=== PATIENT | male | born 1950 | race Caucasian/White ===

== ENCOUNTER 2017-11-22 10:02 | Emergency (ER) | payer OTHER ==
[~2017-11-22] VITALS: Ht 167.6 cm; Wt 61.0 kg
[~2017-11-22 10:02] MED LIST: ASPEC81 PO; LPT40 PO; PLV75 PO
[2017-11-22 10:04] VITALS: TEMP 36.4; Ht 167.6 cm; Wt 61.0 kg
[2017-11-22] MEDS ORDERED: ASPIRIN 81 MG CHEW PO STA (10:29)
[2017-11-22 10:33] VITALS: O2SAT 98
--- NOTE | 2017-11-22 10:42 | EMERGENCY ROOM VISIT NOTE ---
History Report prepared by Chely: Faiza Prado Under the Supervision of: Dr. Prince Loco D.O. First contact with patient: 10:25 Chief Complaint: CARDIAC ASSESSMENT Stated Complaint: PRESSURE IN CHEST, HAS HAD HEART ATTACK BEFORE FEE Nursing Triage Summary: pt to the ED with c/o previous MT and feels similar today SOB ACKERMAN tightness in chest, feels good in am and then feels tired pain has been going on several days feels run down and weak when asked why he came in today he states that he figured it was time to come in History of Present Illness The patient is a 67 year old male who presents to the Emergency Room with complaints of intermittent chest tightness beginning about four days ago. The patient reports shortness of breath, fatigue, foot numbness, hip pain with walking. The patient states his shortness of breath worsens when he exerts himself. The patient states he was snowplowing yesterday. The patient has a history of a heart attack three years ago. When he had the heart attack, he had a stent put in at [facility]. The patient had a stress test about 9 months ago which was unremarkable. The patient states he followed up with his Radiagraph Operator a couple weeks ago. 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 The patient has never taken nitroglycerin. The patient takes a 81 mg aspirin daily and reports taking one this morning. The patient is a smoker. Source of History: patient Onset: four days ago Position: chest Quality: other (tightness) Timing: intermittent Modifying Factors (Worsening): exertion Associated Symptoms: + chest pain, + SOB, + fatigue Review of Systems See HPI for pertinent positives & negatives. A total of 10 systems reviewed and were otherwise negative. Past Medical & Surgical Medical Problems: (1) Acute anterolateral myocardial infarction (2) Acute MT (3) No chronic medical problems Family History No significant family history Social History Smoking Status: Current Some Day Smoker Alcohol Use: occasionally Drug Use: none Marital Status: Occupation Status: employed Current/Historical Medications Scheduled Aspirin (Aspirin EC Low Dose), 81 MG PO QAM Atorvastatin (Lipitor), 40 MG PO DAILY Nitroglycerin (Nitrostat), 1 TAB SL UD Allergies Coded Allergies: No Known Allergies (Unverified , 11/22/17) Physical Exam Vital Signs Date Time Temp Pulse Resp B/P (MAP) Pulse Ox O2 Delivery O2 Flow Rate FiO2 11/22/17 13:23 57 16 118/80 94 Room Air 11/22/17 13:16 64 11/22/17 11:59 58 18 141/91 98 Room Air 11/22/17 10:33 98 Nasal Cannula 2.0 11/22/17 10:33 98 Nasal Cannula 2.0 11/22/17 10:32 96 Room Air 11/22/17 10:31 58 11/22/17 10:04 36.4 74 16 138/95 97 Physical Exam GENERAL: Patient is awake, alert, and in no acute distress. Patient is resting comfortably and showing no signs of anxiety EYES: The conjunctivae are clear. The pupils are round and reactive. EARS, NOSE, MOUTH AND THROAT: The nose is without any evidence of any deformity. Mucous membranes are moist tongue is midline NECK: The neck is nontender and supple. RESPIRATORY: Normal respiratory effort is noted there is no evidence of wheezing rhonchi or rales CARDIOVASCULAR: Regular rate and rhythm noted there no murmurs rubs or gallops normal S1 normal S2 GASTROINTESTINAL: The abdomen is soft. Bowel sounds are present in all quadrants. Abdomen is nontender MUSCULOSKELETAL/EXTREMITIES: There is no evidence of gross deformity full range of motion is noted in the hips and shoulders SKIN: There is no obvious evidence of any rash. There are no petechiae, pallor or cyanosis noted. NEUROLOGIC: Patient is awake alert and oriented x3 Medical Decision & Procedures ER Provider Diagnostic Interpretation: Radiology results as stated below per my review and radiologist interpretation: SINGLE VIEW CHEST FINDINGS: An AP, portable, upright chest radiograph is compared to study dated 04/07/2015. The examination is degraded by portable technique and patient rotation. The cardiomediastinal silhouette is unremarkable. Scattered calcified granulomas are again noted. The lungs and pleural spaces are otherwise clear. No pneumothorax is seen. The bony thorax is grossly intact. IMPRESSION: No active disease in the chest. Electronically signed by: Demetrio Angelo M.D. Laboratory Results 11/22/17 10:29 Red Blood Count 5.28, Mean Corpuscular Volume 89.4, Mean Corpuscular Hemoglobin 31.3, Mean Corpuscular Hemoglobin Concent 35.0, Mean Platelet Volume 10.5, Neutrophils (%) (Auto) 57.4, Lymphocytes (%) (Auto) 30.4, Monocytes (%) (Auto) 10.0, Eosinophils (%) (Auto) 1.5, Basophils (%) (Auto) 0.5, Neutrophils # (Auto ) 3.40, Lymphocytes # (Auto) 1.80, Monocytes # (Auto) 0.59, Eosinophils # (Auto ) 0.09, Basophils # (Auto) 0.03 11/22/17 10:29 Test 11/22/17 10:29 11/22/17 12:15 White Blood Count 5.92 K/uL (4.8-10.8) Red Blood Count 5.28 M/uL (4.7-6.1) Hemoglobin 16.5 g/dL (14.0-18.0) Hematocrit 47.2 % (42-52) Mean Corpuscular Volume 89.4 fL (80-100) Mean Corpuscular Hemoglobin 31.3 pg (25-34) Mean Corpuscular Hemoglobin Concent 35.0 g/dl (32-36) Platelet Count 187 K/uL (130-400) Mean Platelet Volume 10.5 fL (7.4-10.4) Neutrophils (%) (Auto) 57.4 % Lymphocytes (%) (Auto) 30.4 % Monocytes (%) (Auto) 10.0 % Eosinophils (%) (Auto) 1.5 % Basophils (%) (Auto) 0.5 % Neutrophils # (Auto) 3.40 K/uL (1.4-6.5) Lymphocytes # (Auto) 1.80 K/uL (1.2-3.4) Monocytes # (Auto) 0.59 K/uL (0.11-0.59) Eosinophils # (Auto) 0.09 K/uL (0-0.5) Basophils # (Auto) 0.03 K/uL (0-0.2) RDW Standard Deviation 42.0 fL (36.4-46.3) RDW Coefficient of Variation 12.9 % (11.5-14.5) Immature Granulocyte % (Auto) 0.2 % Immature Granulocyte # (Auto) 0.01 K/uL (0.00-0.02) Prothrombin Time 10.6 SECONDS (9.0-12.0) Prothromb Time International Ratio 1.0 (0.9-1.1) Activated Partial Thromboplast Time 26.0 SECONDS (21.0-31.0) Partial Thromboplastin Ratio 1.0 Anion Gap 5.0 mmol/L (3-11) Est Creatinine Clear Calc Drug Dose 50.2 ml/min Estimated GFR () 69.1 Estimated GFR (Non- 59.6 BUN/Creatinine Ratio 13.2 (10-20) Calcium Level 9.1 mg/dl (8.5-10.1) Total Bilirubin 1.0 mg/dl (0.2-1) Direct Bilirubin 0.2 mg/dl (0-0.2) Aspartate Amino Transf (AST/SGOT) 24 U/L (15-37) Alanine Aminotransferase (ALT/SGPT) 25 U/L (12-78) Alkaline Phosphatase 101 U/L (45-117) Total Creatine Kinase 100 U/L (39-308) Creatine Kinase MB 2.6 ng/ml (0.5-3.6) Creatine Kinase MB Ratio 2.6 (0-3.0) Pro-B-Type Natriuretic Peptide 40 pg/ml (0-900) Total Protein 7.3 gm/dl (6.4-8.2) Albumin 4.0 gm/dl (3.4-5.0) Lipase 110 U/L (73-393) Troponin I < 0.015 ng/ml (0-0.045) Laboratory results per my review. Medications Administered Medications (Trade) Dose Ordered Sig/Antonietta Route Start Time Stop Time Status Last Admin Dose Admin Aspirin (Aspirin Chew) 162 mg NOW STAT PO 11/22/17 10:29 11/22/17 10:34 DC 11/22/17 10:37 162 MG ECG Indication: chest pain Rate (beats per minute): 55 Rhythm: sinus bradycardia Findings: ST depression (Inferior and lateral), no ectopy Comparison ECG Date: 03/05/16 Change: no significant change Change: Repeat : sinus bradycardia 47 bpm, ST depressions noted in inferior and lateral leads, no ectopy, no change from previous. EKG interpreted by me. ED Course 1026: The patient was evaluated in room A12A. A complete history and physical examination were performed. 1029: Ordered Aspirin 162 mg PO. 1132: I updated the patient on his test result. He denies any chest pain. 1137: I discussed the patient's case with Dr. Hernandez. The patient will be evaluated for further management. 1158: The patient wants to sign out AMA. We will repeat troponin and EKG. 1328: Long bedside discussion. The patient still would like to go home despite medical advice. 1350: Upon reevaluation, the patient is resting comfortably. I discussed the results and treatment plan with him. He verbalized agreement of the treatment plan. The patient was discharged home. Medical Decision Differential diagnosis: Etiologies such as cardiac ischemia, aortic dissection, pulmonary embolism, pneumonia, pneumothorax, musculoskeletal, infections, pericarditis, myocarditis , esophageal rupture, gastrointestinal, as well as others were entertained. Nursing notes reviewed. The patient is a 67-year-old male who presented to the emergency department for an evaluation of chest discomfort. The patient describes chest pain which I feel could be cardiac in nature. It appears to be exertional. It was also relieved with rest. The patient was treated with aspirin in the emergency department. I discussed the patient's laboratory and radiographic studies with him. I also discussed the limitations of the emergency department workup for chest pain with him. Because of his comorbidities and past medical history I discussed his case with the on-call [facility] hospitalist. The patient was evaluated by the hospitalist but then decided he did not wish to stay in the hospital. I had a long conversation with the patient. His concerns mostly appear to be related to his insurance status. I encouraged him this would not be a problem and that by putting off treatment and further evaluation could be subject to a more serious problem. Ultimately the patient was evaluated by the emergency Department complex case manager. We will try to set him up with an appointment with his primary hand booked folder and stitcher group this week. He decided to sign out AGAINST MEDICAL ADVICE. I discussed the risks of leaving with him as well as his significant other. He was encouraged to rest and avoid any strenuous activity. I also gave him a prescription for sublingual nitroglycerin. He was encouraged to continue all medications as prescribed and return to the emergency department immediately if symptoms change worsen or the need arises. Medication Reconcilliation Current Medication List: was personally reviewed by me Blood Pressure Screening Patient's blood pressure: Normal blood pressure Consults Time Called: [phone] Consulting Physician: Dr. Hernandez Returned Call: [phone] I discussed the patient's case with Dr. Hernandze. The patient will be evaluated for further management. Impression Primary Impression: Exertional chest pain Additional Impression: Sinus bradycardia Scribe Attestation The scribe's documentation has been prepared under my direction and personally reviewed by me in its entirety. I confirm that the note above accurately reflects all work, treatment, procedures, and medical decision making performed by me. Departure Information Dispostion Against Medical Advice Prescriptions Nitroglycerin (Nitrostat) 0.4 Mg Tab 1 TAB SL UD for Chest Pain, #100 TAB 3 Refills Prov: Prince Loco, DO 11/22/17 Referrals No Doctor, Assigned (PCP) Forms IMPORTANT VISIT INFORMATION Patient Instructions Angina, ED Chest Pain Atypical Unkn Cause, My [facility] Additional Instructions Continue all medications as prescribed. Rest and avoid any strenuous activity. Return to the emergency department immediately if symptoms change worsen or the need arises. Follow-up with your hand booked folder and stitcher this week as scheduled. I would also recommend finding a primary care physician. Problem Qualifiers
--- NOTE | 2017-11-22 10:50 | DIAGNOSTIC IMAGING REPORT ---
SINGLE VIEW CHEST CLINICAL HISTORY: Atypical chest pain. FINDINGS: An AP, portable, upright chest radiograph is compared to study dated 04/07/2015. The examination is degraded by portable technique and patient rotation. The cardiomediastinal silhouette is unremarkable. Scattered calcified granulomas are again noted. The lungs and pleural spaces are otherwise clear. No pneumothorax is seen. The bony thorax is grossly intact. IMPRESSION: No active disease in the chest. Electronically signed by: Demetrio Angelo M.D. 11/22/2017 10:48 AM Dictated Date/Time: 11/22/2017 10:47 AM
[2017-11-22 10:58] LABS: BASO % 0.5 %; BASO ABS # 0.03 K/uL (0-0.2); EOS % 1.5 %; EOS ABS # 0.09 K/uL (0-0.5); HEMATOCRIT 47.2 % (42-52); HEMOGLOBIN 16.5 g/dL (14.0-18.0); IG# 0.01 K/uL (0.00-0.02); LYMPH % 30.4 %; MEAN CELL VOLUME 89.4 fL (80-100); MEAN CORPUSCULAR HEMOGLOBIN 31.3 pg (25-34); MEAN PLATELET VOLUME 10.5 fL (7.4-10.4); MONO ABS # 0.59 K/uL (0.11-0.59); NEUT % 57.4 %; PLATELET COUNT 187 K/uL (130-400); RED CELL DISTRIBUTION WIDTH CV 12.9 % (11.5-14.5); WHITE BLOOD COUNT 5.92 K/uL (4.8-10.8)
[2017-11-22] MEDS ORDERED: ATOR-24 PO (11:02)
[2017-11-22 11:10] LABS: ALT/SGPT 25 U/L (12-78); AST/SGOT 24 U/L (15-37); BLOOD UREA NITROGEN 17 mg/dl (7-18); CALCIUM 9.1 mg/dl (8.5-10.1); CARBON DIOXIDE 27 mmol/L (21-32); CREATININE 1.25 mg/dl (0.60-1.40); GLUCOSE 97 mg/dl (70-99); LIPASE 110 U/L (73-393); POTASSIUM 3.7 mmol/L (3.5-5.1); SODIUM 138 mmol/L (136-145)
[2017-11-22 11:16] LABS: ALKALINE PHOSPHATASE 101 U/L (45-117); CKMB 2.6 ng/ml (0.5-3.6); TOTAL PROTEIN 7.3 gm/dl (6.4-8.2)
[2017-11-22 13:23] VITALS: BP 118/80; PULSE 57; O2SAT 94
[2017-11-22] MEDS ORDERED: NTRGSL/4 SL (13:32)
--- NOTE | 2017-11-22 14:27 | History and Physical ---
History & Physical Date of Service Nov 22, 2017. History & Physical per request from ED physician, pt was seen and eval patient wants to sign out AMA. I told patient that against medical advice may cause permanent organ damage or even , patient is awake, alert and orientated x3, I believe patient is competent to make decision by self. patient fully understands and wants to take all risks by self. I also told patient that your medical condition is not ready for your doctor to discharge you to home. you need to go back to emergency room or call your primary care physician if changed mind and wants to be treated.
== END 2017-11-22 13:53 | disposition left against medical advice (07) ==
LOC: C.EDB 10:03 → C.EDA 13:53
DX: R07.89 Other chest pain (principal); R00.1 Bradycardia, unspecified; R06.02 Shortness of breath; R53.83 Other fatigue; R20.0 Anesthesia of skin; M25.559 Pain in unspecified hip; I25.2 Old myocardial infarction; F17.200 Nicotine dependence, unspecified, uncomplicated; Z95.5 Presence of coronary angioplasty implant and graft; Z79.82 Long term (current) use of aspirin

== ENCOUNTER 2022-07-29 07:16 | Inpatient (IN) ==
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
[~2022-07-29 07:16] MED LIST changes: -ASPEC81 PO; +LACTATED RINGER'S 1,000 ML IV SCH; -LPT40 PO; -PLV75 PO; +SUGAMMADEX SODIUM 200 MG/2 ML VIAL IV ONE
[2022-07-29] MEDS ORDERED: ONDANSETRON INJ 2 MG/ML 2 ML VIAL ONE (07:18)
[2022-07-29] MEDS ORDERED: MIDAZOLAM HCL 1 MG/ML 2ML VIAL ONE (07:18)
[2022-07-29] MEDS ORDERED: fentaNYL citrate 100 MCG/2 ML VIAL ONE ×2 (07:18→08:53)
[2022-07-29] MEDS ORDERED: DEXAMETHASONE SOD INJ 4 MG/ML VIAL ONE (07:18)
[2022-07-29] MEDS ORDERED: PROPOFOL IV EMULSION 10 MG/ML 20 ML VIAL IV ONE (07:18)
[2022-07-29] MEDS ORDERED: ROCURONIUM BROMIDE 10 MG/ML 5 ML VIAL IV ONE ×6 (07:18→09:53)
--- NOTE | 2022-07-29 08:12 | History & Physical Bridge Note ---
Date of Service July 29, 2022 History & Physical Bridge Note I have examined the patient, reviewed the History & Physical and in the interval since the performance of the History & Physical I have noted the following changes of clinical significance: no changes noted all question answered, at bedside
[2022-07-29] MEDS ORDERED: ePHEDrine sulfate 50 MG/ML AMP IV PRN (08:16)
[2022-07-29] MEDS ORDERED: ONDANSETRON INJ 2 MG/ML 2 ML VIAL IV PRN (08:16)
[2022-07-29] MEDS ORDERED: ATROPINE SULFATE 0.1 MG/ML 10ML SYR IV PRN (08:16)
[2022-07-29] MEDS ORDERED: BUPIVACAINE 0.5 % 5 MG/1 ML MPF 30ML VIAL ONE (08:22)
[2022-07-29] MEDS ORDERED: KETAMINE 50 MG/5 ML SYRINGE ONE (08:55)
[2022-07-29] MEDS ORDERED: cefOXitin 2,000 MG in DEXTROSE 5% 50 ML IV STA (09:31)
--- NOTE | 2022-07-29 10:45 | Post Operative Brief Note ---
PG Immediate Post Op with CF Date of Surgery July 29, 2022 Pre & Post Diagnosis Operation Date: 07/29/22 08:40 Pre-Op Diagnosis: Mass of Hepatic Flexure Colon Post-Op Diagnosis: Metastatic adenocarcinoma with abdominal carcinometosis I identified the patient and participated in the time-out.: Yes Procedure Operation Date: 07/29/22 08:40 Actual Procedures p Laparoscopic Assisted Open Colon Resection, Right Radical Colectomy, Right external illiac node - Shahab Nowak MD, FACS Surgeon Shahab Nowak MD, FACS Social Worker Clinical b tamera engle Estimated Blood Loss 50 Findings Consistent with Post-Op Diagnosis Specimens Specimen Description: A. right radical colectomy B. Abdominal wall implant external iliac artery Drains Burris Catheter and Simon Drain
[2022-07-29] MEDS: fentaNYL citrate 100 MCG/2 ML VIAL IV PRN ×2 (11:08→11:14)
[2022-07-29] MEDS: HYDROmorphone INJ 2 MG/ML SYR/VIAL IV PRN ×3 (11:26→12:08)
--- NOTE | 2022-07-29 11:32 | Operative Report ---
PG Post Operative Report Pre & Post Diagnosis Operation Date: 07/29/22 08:40 Pre-Op Diagnosis: Mass of Hepatic Flexure Colon Post-Op Diagnosis: Metastatic adenocarcinoma with abdominal carcinometosis I identified the patient and participated in the time-out.: Yes Procedure Operation Date: 07/29/22 08:40 Actual Procedures p Laparoscopic Assisted Open Colon Resection, Right Radical Colectomy, Right external illiac node excision- Shahab Nowak MD, FACS The patient was brought into the operating theater general endotracheal anesthesia supine position Burris catheter inserted abdomen prepped with Betadine solution properly draped antibiotics on board timeout was had the patient was identified this point we made a small incision supraumbilically sufficient to place a Veress needle followed by CO2 followed by 5 mm trocar laparoscopically we could not identify any obvious metastasis to the abdominal wall for the liver the omentum appeared free of any metastasis the tattooed area was just proximal to the hepatic flexure at this point elected to convert to an open procedure which made an incision below and above the umbilical crater extending approximately 10 cm we entered the abdominal cavity this point we found the small bowel to be dilated confirming radiographically the impression that fungating mass was causing some small bowel obstruction at this point we were able to palpate the mass is quite hard and actually had extension what appeared to be beyond the colon itself and in the retroperitoneal area the cecum terminal ileum and appendix was free of any implants the patient did have 2 cm so implant in the right external iliac chain with this within the divided the white line of Toldt in the right lower quadrant and actually with palpate beyond what is felt to be metastatic in the retroperitoneal using electrocautery we stayed away from the lesion was able to resect and elevate the right colon and work her way up to the where the hepatic flexure very hardened area was being on the obstructing lesion in the retroperitoneal area multiple areas it seems to be in continuity therefore we were able to score beyond the lesions and elevated the right colon and we were able to continue our dissection to an area that was free least grossly of any metastatic lesions we worked her way around the hepatic flexure and worked our way to the transverse colon just right of the middle colic artery we dissected and freed up the lesion was not in contact with the duodenum there was no obvious palpable lymph nodes in the mesentery there was 1 small implant in the terminal ileum we then used a hemostat we dissected out approximately a foot away from the ileocecal valve proximal to where that implant was made a small opening in the mesentery of the terminal ileum then used a CATALINA application we divided the terminal ileum our attention was then turned to the transverse colon where similarly we created an opening in the mesentery and used a CATALINA stapler to divide the colon this line of resection grossly was approximately 20 cm from the fungating mass we then scored the mesentery from the terminal ileum to the transverse colon resection dividing it ligated with 2-0 silk the specimen was removed we then checked the right gutter there was no obvious bleeding we had some oozing but very minimal then we closed the mesentery with interrupted 3-0 silk sutures after we had inverted the 2 staple lines with interrupted 3-0 silk we would do a [id number] anastomosis between the terminal ileum and transverse colon using 3-0 silk outer layer 3-0 chromic in a layer the anastomosis itself and we had put the posterior wall there was some oozing in the mucosa of the terminal ileum indicating excellent inflow and blood supply this was eventually controlled with a running suture of 3-0 chromic once this anastomosis had been completed we paid special attention to the corner stitches that we went beyond the corner stitch of 3-0 silk sutures in both areas we continue close in the mesentery till there was no opening appreciated at this point we ran the small bowel all the way to the ligament of Treitz there was no implants that we could see in the mesentery order wall of the small bowel we then felt on the pelvic area and patient had multiple implants in the abdominal wall done in the cul-de-sac area there was no obvious implants that I can feel on the colon or rectal area there was a prominent implant at the right external iliac chain in the mesentery and using electrocautery we excised that in total this was about a 2 cm node once this been completed we position the NG tube in the stomach at 55 cm from the naris the wound was then closed with a running 0 PDS starting 1 cephalad 1 caudad tied in the middle quarter inch [place] was used subcutaneously sutured at distally and proximally in the incision with 3-0 silk and trudy for skin edges dressing was applied procedure was tolerated well estimate blood loss approximately 50 cc AddendumB Ranjit ENGLE was present throughout the procedure and helped the retraction exposure and wound closure Addendum I spoke with Brittany Chaves's girlfriend in the waiting area Surgeon Shahab Nowak MD, FACS Accounting Manager Controller jose engle Estimated Blood Loss 50 Findings Consistent with Post-Op Diagnosis Large lesion right colon Abdominal carcinomatosis Specimens Extended right colonic resection Right external iliac chain implant Drains Quarter-inch Somerset subcu Indications Near obstructing lesion in the right colon with atypia Description of Procedure merda I attest to the content of the Intraoperative Record and any orders documented therein. Any exceptions are noted below.
--- NOTE | 2022-07-29 11:48 | Anesthesiology Progress Note ---
Date of Service July 29, 2022 Anesthesia Post Procedure Vital Signs Vital Signs: Temp Pulse Resp BP Pulse Ox O2 Del Method O2 Flow Rate 07/29/22 11:35 64 13 119/102 H 100 Oxymask 5 07/29/22 11:25 67 18 139/85 100 Oxymask 5 07/29/22 11:15 76 15 128/111 H 99 Oxymask 5 07/29/22 11:05 77 15 138/74 100 Oxymask 5 07/29/22 10:56 36.5 C 86 14 144/66 H 98 Oxymask 5 07/29/22 07:45 36.8 C 76 20 135/81 96 Room Air Pain Intensity Abdomen: Pain Intensity: 5 Transfer of Care Handoff Completed per policy Notes Mental Status: alert / awake / arousable and participated in evaluation Patient Amnestic to Procedure: Yes Nausea / Vomiting: adequately controlled Pain: adequately controlled Airway Patency, RR, SpO2: stable & adequate BP & HR: stable & adequate Hydration State: stable & adequate Anesthetic Complications: no major complications apparent and Pt Satisfied with anesthetic care
[2022-07-29] MEDS ORDERED: NITROGLYCERIN SL 0.4 MG/TAB TAB SL PRN (12:29)
[2022-07-29] MEDS ORDERED: SODIUM CHLORIDE 0.9% 1000ML 1,000 ML IV SCH (12:29)
[2022-07-29] MEDS ORDERED: NALOXONE HCL 0.4 MG/1 ML VIAL/CARP IV PRN (12:29)
[2022-07-29] MEDS ORDERED: MoRPHine SULFATE PCA 30 MG/30 ML IV PRN (12:29)
[2022-07-29] MEDS: LACTATED RINGER'S 1,000 ML IV SCH ×2 (13:13→20:56)
[2022-07-29] MEDS: ACETAMINOPHEN 1,000 MG/100 ML VIAL IV SCH ×2 (13:13→20:56)
[2022-07-29] MEDS: cefOXitin 2,000 MG in DEXTROSE 5% 50 ML IV SCH ×2 (15:44→21:40)
[2022-07-29] MEDS: HEPARIN SOD 5,000 UNIT/0.5 ML VIAL SQ SCH (20:57)
[2022-07-29] MEDS: ASPIRIN 81 MG ECTAB PO SCH (20:57)
[2022-07-30] MEDS: cefOXitin 2,000 MG in DEXTROSE 5% 50 ML IV SCH ×2 (03:45→08:37)
[2022-07-30] MEDS: LACTATED RINGER'S 1,000 ML IV SCH ×4 (03:46→21:52)
[2022-07-30] MEDS: ACETAMINOPHEN 1,000 MG/100 ML VIAL IV SCH ×3 (05:35→20:42)
[2022-07-30 05:42] LABS: Basophils # (auto) 0.01 K/uL (0-0.2); Basophils % (auto) 0.2 %; Hemoglobin 11.1 g/dl (14.0-18.0); Immature Granulocytes # (auto) 0.02 K/uL (0.00-0.02); Immature Granulocytes % (auto) 0.3 %; Lymphocytes # (auto) 0.79 K/uL (1.2-3.4); Lymphocytes % (auto) 12.1 %; Mean Corpuscular Hemoglobin 29.1 pg (25.0-34.0); Mean Corpuscular Hgb Conc 33.6 g/dL (32.0-36.0); Mean Corpuscular Volume 86.6 fL (80.0-100.0); Monocytes # (auto) 0.73 K/uL (0.24-0.82); Monocytes % (auto) 11.2 %; Neutrophils # (auto) 4.98 K/uL (1.4-6.5); Neutrophils % (auto) 76.2 %; Platelet Count 175 K/uL (130-400); RDW Coefficient of Variation 13.5 % (11.5-14.5); RDW Standard Deviation 42.6 fL (36.4-46.3); Red Blood Count 3.81 M/uL (4.63-6.08); White Blood Count 6.53 K/ul (4.8-10.8)
[2022-07-30 06:07] LABS: BUN Creatinine Ratio 12.9 (10-20); Calcium 8.7 mg/dl (8.5-10.1); Creatinine Clr Calc Pharmacy 58.8 ml/min; Est GFR (African American) 96.1 ml/min; Est GFR (Non-African American) 82.9 ml/min; Potassium 4.3 mmol/L (3.5-5.1)
[2022-07-30] MEDS: HEPARIN SOD 5,000 UNIT/0.5 ML VIAL SQ SCH ×2 (08:38→20:43)
--- NOTE | 2022-07-30 10:37 | Surgery Progress Note ---
Date of Service July 30, 2022 Assessment & Plan (1) Mass of hepatic flexure of colon: Plan: Intraoperative findings were discussed with the patient including the need for chemotherapy in the future once he gets over the surgery Will cut back on the morphine that this is accounting for his slight dizziness and and blood pressure 97/52 heart rate 51 We will DC the NG tube start him on clear liquids DC the Burris Plan DC NG tube decrease the morphine DC the Burris start clear liquids [facility] surgery covering the weekend Admission and Anticipated Discharge Date Admission Date: July 29, 2022 Subjective Overall feels fine he has been using the morphine quite regularly overnight stated was a little dizzy not had any chest pain or other issues Physical Exam Physical Exam: Alert coherent resting comfortable Oropharyngeal mucosa is moist NG tube still in place slight bilious drainage The abdomen soft dressing is dry Extremities no pedal edema Urine clear grossly not concentrated Results & Data ([facility]) Vital Signs (Past 12 Hours) Vital Signs Temp Pulse Resp BP Pulse Ox O2 Del Method O2 Flow Rate 07/30/22 07:37 Room Air 07/30/22 07:22 36.6 C 51 L 16 97/52 L 98 Room Air 07/30/22 02:59 36.7 C 47 L 16 136/66 98 Nasal Cannula 1 Laboratory Results Noted Diagnostic Findings Excellent urine output overnight hemoglobin noted PG Care Time/CCT Total # of Minutes Spent Total Time Spent with Patient: Total time spent is greater than 50% in coordination of care (as documented) at patient's floor/unit and/or counseling patient: Coding Level of Care Code None Diagnoses Mass of hepatic flexure of colon K63.89
[2022-07-30] MEDS ORDERED: MoRPHine SULFATE 4 MG/ML 1 ML CARP\\VIAL IV PRN (10:42)
[2022-07-30] MEDS: ONDANSETRON INJ 2 MG/ML 2 ML VIAL IV PRN (18:19)
[2022-07-30] MEDS: oxyCODONE HCL IR 5 MG TAB (IMMEDIATE RELEASE) PO PRN ×2 (18:20→22:29)
[2022-07-30] MEDS: ASPIRIN 81 MG ECTAB PO SCH (20:42)
[2022-07-31] MEDS: oxyCODONE HCL IR 5 MG TAB (IMMEDIATE RELEASE) PO PRN ×2 (02:49→20:06)
[2022-07-31] MEDS: ACETAMINOPHEN 1,000 MG/100 ML VIAL IV SCH ×3 (05:47→20:16)
[2022-07-31 07:20] LABS: Basophils # (auto) 0.02 K/uL (0-0.2); Basophils % (auto) 0.4 %; Eosinophils # (auto) 0.01 K/uL (0-0.50); Eosinophils % (auto) 0.2 %; Hematocrit (blood only) 29.6 % (40.1-51.0); Immature Granulocytes # (auto) 0.02 K/uL (0.00-0.02); Immature Granulocytes % (auto) 0.4 %; Lymphocytes % (auto) 12.8 %; Mean Corpuscular Hemoglobin 29.2 pg (25.0-34.0); Mean Corpuscular Hgb Conc 33.8 g/dL (32.0-36.0); Mean Corpuscular Volume 86.5 fL (80.0-100.0); Mean Platelet Volume 10.8 fL (9.4-12.4); Monocytes # (auto) 0.52 K/uL (0.24-0.82); Monocytes % (auto) 9.5 %; Neutrophils # (auto) 4.18 K/uL (1.4-6.5); Neutrophils % (auto) 76.7 %; Platelet Count 160 K/uL (130-400); RDW Coefficient of Variation 13.4 % (11.5-14.5); RDW Standard Deviation 42.5 fL (36.4-46.3); Red Blood Count 3.42 M/uL (4.63-6.08); White Blood Count 5.45 K/ul (4.8-10.8)
[2022-07-31 08:10] LABS: BUN Creatinine Ratio 11.8 (10-20); Calcium 8.6 mg/dl (8.5-10.1); Creatinine Clr Calc Pharmacy 58.8 ml/min; Est GFR (African American) 96.1 ml/min; Est GFR (Non-African American) 82.9 ml/min; Potassium 3.7 mmol/L (3.5-5.1)
[2022-07-31] MEDS: HEPARIN SOD 5,000 UNIT/0.5 ML VIAL SQ SCH ×2 (08:44→20:11)
[2022-07-31] MEDS: LACTATED RINGER'S 1,000 ML IV SCH ×2 (10:11→21:21)
[2022-07-31] MEDS: ONDANSETRON INJ 2 MG/ML 2 ML VIAL IV PRN (10:57)
--- NOTE | 2022-07-31 13:15 | Surgery Progress Note ---
Date of Service July 31, 2022 Assessment & Plan (1) Mass of hepatic flexure of colon: Plan: F/U S/P Laparoscopic Assisted Open Colon Resection, Right Radical Colectomy, POD 2 doing fine, keep clear diet now, wait bowel function return repeat labs in morning, continue treatment, will F/U Admission and Anticipated Discharge Date Admission Date: July 29, 2022 Subjective Overall feels fine he has been using the morphine quite regularly overnight stated was a little dizzy not had any chest pain or other issues 07/31/2022 1:14PM Dr. Powers F/U S/P Laparoscopic Assisted Open Colon Resection, Right Radical Colectomy, POD 2 pt is stable, no significant abdominal pain, no BM yet, no fever, Physical Exam Constitutional: WD/WN, vitals as above Eyes: PERRL, conjunctivae normal, anicteric sclerae Neck: trachea midline, no thyromegaly Respiratory: normal respiratory effort, lungs clear to auscultation Cardiovascular: RRR, no murmur, no edema Gastrointestinal (Abdomen): soft, mild tenderness at incision site, no rebound pain, incision intact, no redness, BS +, no distend Musculoskeletal: no cyanosis or clubbing, extremities motor strength 5/5 Neurologic: patellar DTR's 2+ bilat, sensation intact Psychiatric: A+Ox3, euthymic affect Results & Data ([facility]) Vital Signs (Past 12 Hours) Vital Signs Temp Pulse Resp BP Pulse Ox O2 Del Method 07/31/22 07:29 36.7 C 59 L 16 110/64 95 Room Air Laboratory Results Abnormal lab results 07/31/22 Range/Units 06:19 RBC 3.42 L (4.63-6.08) M/uL Hgb 10.0 L (14.0-18.0) g/dl Hct 29.6 L (40.1-51.0) % Lymph # (Auto) 0.70 L (1.2-3.4) K/uL
[2022-07-31] MEDS: TAMSULOSIN HCL 0.4 MG CAP PO SCH (16:26)
[2022-07-31] MEDS: ASPIRIN 81 MG ECTAB PO SCH (20:11)
[2022-08-01] MEDS: ACETAMINOPHEN 1,000 MG/100 ML VIAL IV SCH (05:26)
[2022-08-01 06:56] LABS: Basophils # (auto) 0.02 K/uL (0-0.2); Basophils % (auto) 0.4 %; Eosinophils # (auto) 0.17 K/uL (0-0.50); Eosinophils % (auto) 3.5 %; Hematocrit (blood only) 29.8 % (40.1-51.0); Hemoglobin 9.8 g/dl (14.0-18.0); Immature Granulocytes # (auto) 0.02 K/uL (0.00-0.02); Immature Granulocytes % (auto) 0.4 %; Lymphocytes # (auto) 0.73 K/uL (1.2-3.4); Lymphocytes % (auto) 15.2 %; Mean Corpuscular Hemoglobin 28.9 pg (25.0-34.0); Mean Corpuscular Hgb Conc 32.9 g/dL (32.0-36.0); Mean Corpuscular Volume 87.9 fL (80.0-100.0); Mean Platelet Volume 10.4 fL (9.4-12.4); Monocytes # (auto) 0.39 K/uL (0.24-0.82); Monocytes % (auto) 8.1 %; Neutrophils # (auto) 3.47 K/uL (1.4-6.5); Neutrophils % (auto) 72.4 %; Platelet Count 174 K/uL (130-400); RDW Coefficient of Variation 13.4 % (11.5-14.5); RDW Standard Deviation 43.1 fL (36.4-46.3); Red Blood Count 3.39 M/uL (4.63-6.08)
[2022-08-01 07:28] LABS: BUN Creatinine Ratio 8.8 (10-20); Calcium 8.6 mg/dl (8.5-10.1); Est GFR (African American) 98.6 ml/min; Est GFR (Non-African American) 85.1 ml/min; Potassium 3.8 mmol/L (3.5-5.1)
[2022-08-01] MEDS: HEPARIN SOD 5,000 UNIT/0.5 ML VIAL SQ SCH ×2 (08:09→21:25)
[2022-08-01] MEDS: TAMSULOSIN HCL 0.4 MG CAP PO SCH (08:09)
[2022-08-01] MEDS: LACTATED RINGER'S 1,000 ML IV SCH ×2 (09:56→21:45)
--- NOTE | 2022-08-01 11:59 | Surgery Progress Note ---
Date of Service August 01, 2022 Assessment & Plan (1) Mass of hepatic flexure of colon: Plan: F/U S/P Laparoscopic Assisted Open Colon Resection, Right Radical Colectomy, POD 2 doing fine, keep clear diet now, wait bowel function return repeat labs in morning, continue treatment, will F/U 08/01/2022 12:01PM F/U S/P Laparoscopic Assisted Open Colon Resection, Right Radical Colectomy, POD 3 doing fine, full liquid diet now, repeat labs in morning, continue treatment, will F/U Admission and Anticipated Discharge Date Admission Date: July 29, 2022 Subjective Overall feels fine he has been using the morphine quite regularly overnight stated was a little dizzy not had any chest pain or other issues 08/01/2022 11;58AM Dr. Powers F/U S/P Laparoscopic Assisted Open Colon Resection, Right Radical Colectomy, POD 3 pt is stable, no significant abdominal pain, passed some gas, no BM yet, no fever, Physical Exam Constitutional: WD/WN, vitals as above Eyes: PERRL, conjunctivae normal, anicteric sclerae Neck: trachea midline, no thyromegaly Respiratory: normal respiratory effort, lungs clear to auscultation Cardiovascular: RRR, no murmur, no edema Gastrointestinal (Abdomen): soft, mild tenderness at incision site, no rebound pain, incision intact, no redness, BS = Musculoskeletal: no cyanosis or clubbing, extremities motor strength 5/5 Neurologic: patellar DTR's 2+ bilat, sensation intact Psychiatric: A+Ox3, euthymic affect Results & Data ([facility]) Vital Signs (Past 12 Hours) Vital Signs Temp Pulse Resp BP Pulse Ox O2 Del Method 08/01/22 07:14 36.7 C 48 L 16 115/65 96 Room Air Laboratory Results Abnormal lab results 08/01/22 08/01/22 Range/Units 06:26 06:26 RBC 3.39 L (4.63-6.08) M/uL Hgb 9.8 L (14.0-18.0) g/dl Hct 29.8 L (40.1-51.0) % Lymph # (Auto) 0.73 L (1.2-3.4) K/uL Anion Gap 2 L (3-11) BUN/Creatinine Ratio 8.8 L (10-20)
[2022-08-01] MEDS: ASPIRIN 81 MG ECTAB PO SCH (21:24)
[2022-08-02 06:32] LABS: Basophils # (auto) 0.03 K/uL (0-0.2); Basophils % (auto) 0.6 %; Eosinophils # (auto) 0.21 K/uL (0-0.50); Eosinophils % (auto) 4.4 %; Hematocrit (blood only) 30.7 % (40.1-51.0); Hemoglobin 10.3 g/dl (14.0-18.0); Immature Granulocytes # (auto) 0.01 K/uL (0.00-0.02); Immature Granulocytes % (auto) 0.2 %; Lymphocytes # (auto) 0.76 K/uL (1.2-3.4); Lymphocytes % (auto) 15.9 %; Mean Corpuscular Hemoglobin 28.7 pg (25.0-34.0); Mean Corpuscular Hgb Conc 33.6 g/dL (32.0-36.0); Mean Corpuscular Volume 85.5 fL (80.0-100.0); Mean Platelet Volume 10.5 fL (9.4-12.4); Monocytes # (auto) 0.44 K/uL (0.24-0.82); Monocytes % (auto) 9.2 %; Neutrophils # (auto) 3.33 K/uL (1.4-6.5); Neutrophils % (auto) 69.7 %; Platelet Count 194 K/uL (130-400); RDW Coefficient of Variation 12.8 % (11.5-14.5); RDW Standard Deviation 39.7 fL (36.4-46.3); Red Blood Count 3.59 M/uL (4.63-6.08); White Blood Count 4.78 K/ul (4.8-10.8)
[2022-08-02 06:56] LABS: BUN Creatinine Ratio 9.2 (10-20); Calcium 8.6 mg/dl (8.5-10.1); Creatinine Clr Calc Pharmacy 62.8 ml/min; Est GFR (African American) 101.3 ml/min; Est GFR (Non-African American) 87.4 ml/min; Potassium 3.6 mmol/L (3.5-5.1)
[2022-08-02] MEDS ORDERED: POTASSIUM CHLORIDE CRTAB 20 MEQ TABCR PO STA (07:58)
--- NOTE | 2022-08-02 08:09 | Surgery Progress Note ---
Date of Service August 02, 2022 Assessment & Plan (1) Mass of hepatic flexure of colon: Plan: 08/02/22 #4 Postoperative day status post laparoscopic assisted right radical colectomy The patient is doing very well he would like more to eat for we will give him a regular diet and likely discharge later this afternoon if he tolerates it We will see him back in the office in 1 week instruction regarding wound care diet (low fiber diet until bowel movements normalize then go to a high-fiber) and activity explained to him Also explained to him that we have not had the final path report at this time Intraoperative findings were discussed with the patient including the need for chemotherapy in the future once he gets over the surgery Will cut back on the morphine that this is accounting for his slight dizziness and and blood pressure 97/52 heart rate 51 We will DC the NG tube start him on clear liquids DC the Burris Plan DC NG tube decrease the morphine DC the Burris start clear liquids [facility] surgery covering the weekend Admission and Anticipated Discharge Date Admission Date: July 29, 2022 Subjective No major issues except that he would like to have more to eat stated has significant amount of flatus over the weekend more so yesterday and this morning Denies any significant pain in fact he has not had any significant analgesics Physical Exam Physical Exam: 1 alert coherent resting comfortably in bed Oropharyngeal area moist The abdomen soft nontender Incision without any erythema Simon drain is subcu still present with minimal drainage Alert coherent resting comfortable Oropharyngeal mucosa is moist NG tube still in place slight bilious drainage The abdomen soft dressing is dry Extremities no pedal edema Urine clear grossly not concentrated Results & Data ([facility]) Vital Signs (Past 12 Hours) Vital Signs Temp Pulse Resp BP Pulse Ox O2 Del Method 08/02/22 07:53 36.6 C 52 L 16 140/72 96 Room Air 08/01/22 21:12 36.8 C 66 16 128/71 95 Laboratory Results Noted slight drop in hemoglobin postoperatively was mostly related to rehydration after event of bowel prep for approximately 48 hours before surgery Labs this morning noted PG Care Time/CCT Total # of Minutes Spent Total Time Spent with Patient: Total time spent is greater than 50% in coordination of care (as documented) at patient's floor/unit and/or counseling patient: Coding Level of Care Code None Diagnoses Mass of hepatic flexure of colon K63.89
[2022-08-02] MEDS: HEPARIN SOD 5,000 UNIT/0.5 ML VIAL SQ SCH (08:25)
[2022-08-02] MEDS: TAMSULOSIN HCL 0.4 MG CAP PO SCH (08:25)
--- NOTE | 2022-08-06 11:02 | Discharge Summary ---
Date of Service August 02, 2022 Principal Diagnosis Colon cancer with carcinomatosis Discharge Data Allergies Allergy/AdvReac Type Severity Reaction Status Date / Time No Known Allergies Allergy Verified 07/29/22 07:42 Procedures Performed Operation Date: 07/29/22 08:40 Actual Procedures p Laparoscopic Assisted Open Colon Resection, Right Radical Colectomy, Right external illiac node - Shahab Nowak MD, FACS Hospital Course (1) Mass of hepatic flexure of colon: 71 y/o male was taken to the operating room for laparoscopic assisted right colon resection. He was transferred to the surgical floor. Heparin was used for DVT prophylaxis. On POD 1 dao and Ng were removed and he was started on clear liquids. His vitals and labs remained stable. He was advanced to full liquids on POD 3. On day 4 he was able to tolerate regular diet and began having BMs. He was stable for discharge home. Total Time Total Time Spent Total Time Spent (In Minutes): 15 Discharge Plan Discharge Items Patient Disposition: Home - Self-Care Reason For Visit: Mass of Hepatic Flexure Colon Discharge Diagnosis: right colon resection Activity: Per Instructions section Lifting: No more than 10 pounds Bathing Comment: may shower; no soaking in tubs/pools Exercise/Sports: Wait until after follow-up appointment Driving/Machine Use: wait until cleared by surgeon Non-emergency contact: Surgeon Call non-emergency contact if: you have any medication questions, your symptoms worsen, your pain is not controlled, your pain is concerning for you, you have a fever, your temperature is above 101.5, your wound has increased redness, your wound has increased drainage and your wound pain has increased Follow-up/Referrals: Chon Rojas CRNP [Primary Care Provider] - Shahab Nowak MD, FACS [Surgeon] - 08/10/22 1:45 pm (Please call to schedule follow up in clinic within 1 week) Diet: Low Fiber Addtl Attending Provider Instructions: Please continue on a low fiber diet until instructed by your surgeon You have surgical trudy in place that will be removed at your follow up appointment You may change the dressing on your abdomen daily, with dry 4x4 gauze/tape. If the area is dry you do not need to keep it covered and may leave the incision open to air. You may purchase Tylenol and/or Ibuprofen over the counter if needed for pain. -Tylenol 650mg orally every 4-6 hours, as needed for pain. Do not exceed >3grams of Acetaminophen within a 24 hour time period -Ibuprofen 200mg-600mg orally every 6-8 hours, as needed for pain for a few days. Take with food Pending Studies at Discharge: Yes Studies:: surgical pathology Stand-Alone Forms: My [facility] Adpeps, Smoking Cessation Medications and DC Order Prescriptions: Continued atorvastatin 40 mg tablet 40 mg PO HS Qty: 90 1RF triamcinolone acetonide 0.1 % cream 1 applic topical BID PRN (Reason: .) Rx Instructions: Apply to areas of the trunk twice daily x 2 weeks as needed for flaring. nitroglycerin 0.4 mg tablet, sublingual 0.4 mg sublingual Q5M PRN (Reason: chest pain) Qty: 6 0RF Rx Instructions: May take up to 3 total doses every 5 minutes apart, consider calling an ambulance. aspirin [Jacek Low Dose Aspirin] 81 mg Tablet,Delayed Release (Dr/Ec) 81 mg PO HS Beta Prostate 1 tab PO HS PRN (Reason: Urinary Retention) Discontinued metronidazole 500 mg tablet 500 mg PO .COMPLEX Qty: 3 0RF Rx Instructions: 500 mg PO The day before surgery take at 2:00 pm, 4:00 pm, and 10:00 pm.; neomycin 500 mg Tablet 1,000 g PO Q6H PRN (Reason: preop) Rx Instructions: preop prep Discharge Orders: Discharge Order (Routine); Ordered 08/02/22 Ordered By: Chely Marrero/Other Patient Handouts: Low-Fiber Diet Admission Data Admit Date/Time: 07/29/22 11:01 Attending Provider: Shahab Nowak Admit Provider: Shahab Nowak Primary Care Provider: Chon Rojas Other Interventions: Discharge Summary Assessment (RN) Last Done: 08/02/22 11:56 Coding Level of Care Code D/C DAY MANAGEMENT <30 MINS Diagnoses Mass of hepatic flexure of colon K63.89
== END 2022-08-02 13:52 | disposition home or self-care (01) | DRG 330 ==
LOC: ASU 07:16 → 3E 11:01